=== PATIENT | male | born 1950 ===

== ENCOUNTER 2022-03-31 06:00 | Outpatient (RCR) | payer MEDICARE, BC, SELFPAY | END 2022-04-09 23:59 | disposition home or self-care (01) | LOC: GPT 06:00 | PROVIDERS: Referring Provider Orthopaedic Surgery Hand Surgery; Visit Provider Orthopaedic Surgery Hand Surgery | DX: M25.642 Stiffness of left hand, not elsewhere classified (principal); M65.332 Trigger finger, left middle finger; M65.342 Trigger finger, left ring finger | CPT/HCPCS: 97110; 97140; 97162 ==

== ENCOUNTER 2022-04-10 06:00 | Outpatient (RCR) | payer MEDICARE, BC, SELFPAY | END 2022-05-10 23:59 | disposition home or self-care (01) | LOC: GPT 06:00 | PROVIDERS: Referring Provider Orthopaedic Surgery Hand Surgery; Visit Provider Orthopaedic Surgery Hand Surgery | DX: M25.642 Stiffness of left hand, not elsewhere classified (principal); M65.332 Trigger finger, left middle finger; M65.342 Trigger finger, left ring finger | CPT/HCPCS: 97110; 97140 ==

== ENCOUNTER 2023-01-20 06:00 | Outpatient (RCR) | payer MEDICARE, BC, SELFPAY | END 2023-02-07 23:59 | disposition home or self-care (01) | LOC: GPT 06:00 | PROVIDERS: Visit Provider Physician Assistant | DX: M72.0 Palmar fascial fibromatosis [Dupuytren] (principal) | CPT/HCPCS: 97110; 97140; 97162 ==

== ENCOUNTER 2023-02-19 15:18 | Outpatient (RCR) | payer MEDICARE, BC, SELFPAY | END 2023-03-10 23:59 | disposition home or self-care (01) | LOC: GPT 15:18 | PROVIDERS: Visit Provider Physician Assistant | DX: M72.0 Palmar fascial fibromatosis [Dupuytren] (principal) | CPT/HCPCS: 97110; 97112; 97140; 97530; 97535 ==